=== PATIENT | male | born 1980 | race Caucasian/White ===

== ENCOUNTER → 2017-09-22 21:40 | Emergency (ER) | payer BC ==
[~2017-09-22 21:40] MED LIST: LORazepam 0.5 MG Tab ONE
--- NOTE | 2017-09-23 04:09 | ER ---
DATE OF SERVICE: 09/22/2017 HISTORY OF PRESENT ILLNESS: A 37-year-old male who comes in with complaints of hard to take a deep breath. He states that there is like a catching sensation in his chest when he tries to take a deep breath at times. This started earlier today. He is not having any problems with shortness of breath, wheezing, or chest pain. He does not feel nauseated. He does not feel sick. He finds that he is getting a little worried about this symptom. The patient is in this area on a fishing trip. He lives in [place]. He states that he has been not sleeping as much as he should be and has been drinking a lot of alcohol the last couple of days on the fishing trip. The patient denies any history of heart disease. He is a nonsmoker. He states he used to chew tobacco but no longer. Current medication is benazepril 10 mg a day. The patient states that he also has felt more fatigued lately and this has been ongoing for a few weeks, but he relates this to being short on sleep on a regular basis due to his job. OBJECTIVE: GENERAL APPEARANCE: The patient is awake and alert. No obvious distress. VITAL SIGNS: Reviewed. Blood pressure 151/102, pulse is normal. HEENT: Ears , TMs are dull, otherwise normal. Nares are patent. Oral mucous membranes moist. Tonsils not enlarged or injected. Pharynx not inflamed. NECK: Supple. LUNGS: Clear with good air exchange throughout the lung lackey. The patient is able to take a deep breath well at this time. He felt a slight catching sensation on 2 of the deep inspirations, but was able to continue. CARDIAC: Heart sounds distinct. S1, S2 present. Regular rate. No murmurs. ABDOMEN: Soft, nontender. Bowel sounds are present. INITIAL WORKUP: An EKG was obtained showing a normal sinus rhythm. Labs include CBC and CMP. They are normal. The patient was monitored in our ER for about an hour. Blood pressure dropped to 139/100. He states that he still feels a little bit anxious about what is going on and is wondering if he can have something to help with anxiety. DIAGNOSIS: Stress with mild anxiety. TREATMENT PLAN: I will give the patient Ativan 0.5 mg, he can take it now, and we will give him 2 more tablets to take as needed every 8 hours. I advised the patient to increase his benazepril to 15 mg, taking an extra 5 mg tonight and again tomorrow when he takes his usual dose. I advised patient to refrain from any alcohol use for 24 hours at least and activity should otherwise be as tolerated. Follow up is p.r.n. BRODY/NICOLETTE /[id number] MTDD
--- NOTE | 2017-09-23 09:56 | CR ---
DATE OF SERVICE: 09/22/17 CLINICAL DATA: SOB PA AND LATERAL CHEST: No priors. The heart size is normal. The lungs are clear. No pneumothorax. No pleural effusions. No areas of consolidation. No evidence of acute intrathoracic disease. [id number] MTDD
== END | disposition home or self-care (01) ==
LOC: LB.ED 21:40
DX: F43.9 Reaction to severe stress, unspecified (principal); F41.9 Anxiety disorder, unspecified
CPT/HCPCS: 36415; 71046; 80053; 85025; 93005; 99285-25; A9270-GY